=== PATIENT | male | born 1950 | race African-American/Black ===

== ENCOUNTER → 2023-08-08 11:19 | Outpatient (REF) | payer OTHER, SELFPAY ==
--- NOTE | 2023-08-08 11:28 | CA_ITS ---
Transthoracic Echocardiogram Patient (Last, First, Middle): Riki Anderson, Gender: Male Date of : 1950 Age: 73 Procedure Date: 08/08/2023 Procedure Type: Transthoracic Echocardiogram Location: OP Height: 190.5 cm Weight: 79.38 kg BSA: 2.07 m2 Heart Rate: bpm BP: 148 / 70 mmHg Abrasive Mixer: TO Referring MD: Mona HARDING Symptoms: R94.31 ABNORMAL EKG Study Quality: Fair ECG Rhythm: Sinus Conclusions: - The left ventricular systolic function is normal. The calculated ejection fraction is 59% by biplane method. - There is severely increased left ventricular wall thickness. - No obvious valvular pathology seen on this study. Findings Procedure Information The study quality is limited by the patients inability to tolerate the test. Left Ventricle Normal left ventricular cavity size. There is severely increased left ventricular wall thickness. The left ventricular systolic function is normal. The calculated ejection fraction is 59% by biplane method. There is no evidence of regional wall motion abnormalities. Diastolic function is normal for age. Right Ventricle Normal right ventricular cavity size. There is low normal right ventricular systolic function. Atria Mild biatrial enlargement. Aortic Valve There is a normal trileaflet aortic valve. There is no aortic valve stenosis. There is no aortic valve regurgitation. Mitral Valve There is mild anterior and posterior mitral leaflet thickening. There is trace mitral valve regurgitation. There is no mitral valve stenosis. Pulmonic Valve The pulmonic valve is likely normal. Tricuspid Valve Normal tricuspid valve structure. There is trace tricuspid valve regurgitation. There is no evidence of pulmonary hypertension. Great Vessels The asc aorta is normal in size. Small plaque is seen in the sino tubular ridge. Venous The inferior vena cava is normal in size and collapses greater than 50% with inspiration. Pericardium/Pleural There is no evidence of pericardial effusion. Prior Study Comparison No prior study available for comparison. Recommendations, Care & Conclusions No obvious valvular pathology seen on this study. Measurements 2D Linear Measurements IVSd: 1.48 0.6-0.9/0.6-1.0 cm LVIDd: 3.84 3.9-5.3/4.2-5.9 cm LVIDd Index: 1.86 2.4-3.2/2.2-3.1 cm/m2 LVIDs: 2.73 2.0-3.6 cm LVPWd: 1.55 0.7-1.1 cm LA Diam: 3.30 2.7-3.8/3.0-4.0 cm LAIDs Index: 1.59 1.5-2.3 cm/m2 LV Mass: 278.32 67-162/88-224 g LV Mass Index: 134.46 43-95/49-115 g/m2 LVOT Diam: 2.40 3.0+(-)1.3 cm 2D Systolic Function EF 4C: 63.90 >55% EF 2C: 55.50 >55% EF BiP: 59.30 >55% Mitral Valve MV VTI: 0.30 MV Pk Lloyd: 0.99 MV Mn Lloyd: 0.57 MV Pk Grad: 4.00 MV Mn Grad: 2.00 MV Pk E: 0.75 MV PK A: 0.64 MV Decel Time: 226.00 E/A: 1.20 E'Lateral: 7.29 E'Medial: 4.13 E/E' Med: 18.10 E/E' Lat: 10.20 PHT: 66.00 MVA PHT: 3.33 MVA Continuity: 2.50 Decel Ellsworth: 3.31 Aortic Valve AoV Pk Lloyd: 1.09 AoV Mn Lloyd: 0.70 AoV VTI: 0.23 AoV Pk Grad: 5.00 Aov Mn Grad: 2.00 ADORE Cont.VTI: 3.17 LVOT LVOT Pk Lloyd: 0.67 LVOT Mn Lloyd: 0.44 LVOT VTI: 0.16 LVOT Pk Grad: 2.00 LVOT Mn Grad: 1.00 LVOT Diam: 2.40 LVOT Area: 4.52 Diastolic Function MV Pk E: 0.75 MV Pk A: 0.64 E/A: 1.20 E'Medial: 4.13 E/E' Med: 18.10 E' Laterial: 7.29 E/E' Lat: 10.20 Right Ventricle TAPSE (mm): 16.30 TVS' Lloyd: 10.40 Tricuspid Valve TR Pk Lloyd: 2.06 TR Pk Grad: 17.00 RA Press: 3.00 RVSP: 20.00 Great Vessels Aorta Sinus of Valsalva: 3.64 2.0-3.[address] Ridge: 2.37 1.7-3.4 cm Ao Asc: 3.50 2.1-3.4 cm Updated in Other Vendor System with Status of Final Shabbir Moser MD electronically signed on 08/09/2023 12:10:31 PM with status of Final
== END ==
LOC: HO.CARD 11:19
PROVIDERS: Visit Provider Physician Assistant
DX: R94.31 Abnormal electrocardiogram [ECG] [EKG] (principal)
CPT/HCPCS: 93306

== ENCOUNTER → 2023-08-08 11:28 | Outpatient (BNV) | payer OTHER, SELFPAY | PROVIDERS: Visit Provider Internal Medicine | DX: I34.89 Other nonrheumatic mitral valve disorders (principal) | CPT/HCPCS: 93306 ==